=== PATIENT | male | born 1945 | race Caucasian/White ===

== ENCOUNTER 2018-01-24 19:07 | Inpatient (IN) | payer OTHER ==
[~2018-01-24] VITALS: Ht 195.6 cm; Wt 86.1 kg
--- NOTE | ~2018-01-24 | H ---
[facility] [place] [address] HISTORY AND PHYSICAL Name: SVETLANA PEPE Room #: 505-P ADM IN M.R.#: [id number] Admission: 02/17/18 Attend Phys: Jacob Coon MD Discharge: Date of : 49 Report #: [id number] THIS REPORT FOR: //name// CC: Jacob Coon [facility] physician/PCP DATE OF SERVICE: 02/17/2018 HISTORY AND PHYSICAL AND POST-ADMISSION PHYSICIAN EVALUATION HISTORY OF PRESENT ILLNESS: The patient is a 73-year-old white male, transferred from [facility], who was noted to have mental status changes. Images were obtained and revealed bilateral subdural hematomas. He underwent craniotomy for hematoma evacuations x 2 on both 01/10/2018 and 01/26/2018 and had placement of a drain. 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 He is noted to have severe dysphagia. He is n.p.o. and underwent PEG tube placement. He was noted to have urinary retention and was seen by Urology, Ximena Vargas APRN. He has a prior history of a total prostatectomy. He had not had prior problems with retention. They recommended continuing Flomax, may try voiding trial when the patient is more mobile. Continue Tillman catheter. The patient was gradually stabilized and found to be ready now for transfer for acute in-hospital inpatient rehabilitation. PAST MEDICAL HISTORY: Includes hypertension, diabetes mellitus, and schizophrenia. MEDICATIONS: Please see the full medication listing. These are noted to include vitamins, herbals, and supplements. ALLERGIES: No known drug allergies. SOCIAL HISTORY: He was noted to live with his sister, did not utilize gait aids, one step in, was premorbidly independent with basic ADLs. REVIEW OF SYSTEMS: No specific complaints of chest pain, shortness of breath, or abdominal discomfort. No focal extremity pain complaints. PHYSICAL EXAMINATION: GENERAL: The patient is a 73-year-old white male, lying in bed, no obvious distress. VITAL SIGNS: Temperature is 98.4, pulse is 77, respirations 17, blood pressure is 114/80. HEENT: Scalp incisions appear to be intact. Facies appeared symmetric. He has poor dentition. He has significant dysarthria and it is difficult to understand what he is saying. He appears to be able to follow basic 1 step commands and [facility] [address] [place] [address] HISTORY AND PHYSICAL Name: SVETLANA PEPE Room #: 505-P [facility] IN [facility]#: [id number] Admission: 02/17/18 Attend Phys: Jacob Coon MD Discharge: Date of : 47 Report #: [id number] could answer some simple one word questions. EOMs appeared to be intact. CHEST: Sounded clear to auscultation. CARDIAC: Regular rate and rhythm. ABDOMEN: He has the PEG tube in place. GENITOURINARY AND RECTAL: He has the indwelling Tillman catheter. NEUROLOGIC: He has functional range of motion of the upper extremities. Strength is grade 4-/5. DTRs are trace to 1. Lower extremities functional range of motion. Strength appears to be a grade 3+ to 4-/5. DTRs are trace to 1. There is no clonus. Therapy evaluations are currently underway. ASSESSMENT: The patient is a 73-year-old white male with the following problem list: 1. Subdural hematoma, status post craniotomy for evacuation of hematoma x 2 and drain placement. 2. Dysphagia, currently n.p.o. on PEG tube feedings. Dietary is involved as per consultation. 3. Urinary retention with indwelling Tillman catheter. May consider a voiding trial at a later date depending upon his functional recovery with mobility. 4. Severe dysarthria. 5. History of frequent falls. 6. Hypertension. 7. Diabetes mellitus. 8. Premorbid history of schizophrenia. PLAN: The patient is admitted for acute in-hospital inpatient rehabilitation. From a postadmission physician evaluation perspective, there are no relevant changes since the preadmission screening. Please see the review of the prior and current medical and functional conditions and comorbidities. As far as risk of complications, the patient has the multiple medical comorbidities as noted above. The initial plan of care involves the interdisciplinary acute inpatient rehabilitation program with the goal of maximizing his functional independence, so that he can hopefully return back to his prior living situation. The measurable functional goals would be basic transfers, mobility, ADLs, communication, and swallowing. Prognosis is reasonably good with estimated length of stay probably fairly long as he is quite involved. Would anticipate probably at least 3-4 weeks. Potential barriers would include his multiple medical comorbidities and decreased functional status. The patient meets diagnostic criteria for an acute in-hospital inpatient rehabilitation stay. He meets the medical necessity criteria and we will have Internal Medicine involved regarding medical issues. He does have the [facility] [address] [place] [address] HISTORY AND PHYSICAL Name: SVETLANA PEPE #: 505-P ADM IN M.R.#: [id number] Admission: 02/17/18 Attend Phys: Jacob Coon MD Discharge: Date of : 47 Report #: [id number] tolerance for therapies and has appropriate discharge goals back to the home setting. <ELECTRONICALLY SIGNED> By: Jacob Coon MD 02/27/18 1031 [id number] [id number] Jacob Coon MD /PMT
--- NOTE | ~2018-01-24 | HC ---
[facility] [place] [address] CONSULTATION Name: SVETLANA PEPE Room #: 505-P [facility] IN M.R.#: [id number] Admission: 02/17/18 Attend Phys: Jacob Coon MD Discharge: Date of : 47 Report #: [id number] THIS REPORT FOR: //name// CC: Jacob Coon [facility] physician/PCP DATE OF SERVICE: 02/21/2018 NEUROBEHAVIORAL STATUS EXAMINATION ATTENDING PHYSICIAN: Jacob Coon MD DESIGN EDITOR: Remy Pandya, PhD CLINICAL PRESENTATION: The patient is a 73-year-old male admitted to the rehabilitation unit at [facility] for a comprehensive inpatient rehabilitation program to improve functional mobility, activities of daily living and self-care and mental status secondary to deficits from a subdural hematoma. He is status post craniotomy for evacuation of hematoma x 2 and drain placement. His diagnoses include dysphagia, urinary retention with indwelling Tillman catheter, severe dysarthria, history of frequent falls, hypertension, diabetes mellitus and a premorbid history of schizophrenia. The patient reportedly was visiting [place] with his sister and [id number]-[id number] for for a when he fell and sustained his injuries. His sister had a heart attack and needed to return to their home town in [place]. The patient had been living with his sister and [id number] prior to this most recent medical event. A complete description of his medical condition, history and medications can be found in his medical record. Neuropsychological consultation was requested to provide assistance in the assessment of cognitive and emotional status and to provide recommendations and services. Prior to this most recent admission the patient was living with his sister and [id number] in [place]. He carries a longstanding history of mental illness including a diagnosis of schizophrenia. The patient reports having been with 3 children. However, he is an uncertain historian. He is a high school graduate. Attempts were made to contact his sister; however, unsuccessful with an incomplete phone number in the medical record. TECHNIQUES UTILIZED: Clinical interview, review of medical records, staff consultation and behavioral observation, and mini mental status exam 2 brief version. EXAMINATION FINDINGS: The patient was alert and cooperative with the [facility] [address] [place] [address] CONSULTATION Name: SVETLANA PEPE Room #: 505-P [facility] IN ..#: [id number] Admission: 02/17/18 Attend Phys: Jacob Coon MD Discharge: Date of : 47 Report #: [id number] assessment. He is severely dysarthric, which interferes with expressive speech and comprehension. He mumbles his response and occasionally can articulate a specific statement, but with much effort. He does not appear to have an aphasia. It is difficult to assess for thought disorder. However, he does not indicate auditory hallucinations at this time. Medical notes indicate that he was independent with basic activities of daily living. He does not appear to have been driving or managing finances or medication. The patient reports feeling depressed and anxious. Decreased insight into cognitive deficits is suggested. His performance on the MMSE 2 brief version was extremely low with a raw score of 6/16. He was 3/3 for initial registration, 4/5 for orientation to time, 0/[address], and 0/3 for immediate recall of 3 items after a brief time delay and distraction. The patient has very poor problem solving. He was observed as being unable to turn his television off. Auditory comprehension appeared satisfactory. Deficits in expression are severe which interfere with assessment. However, impairment is noted in orientation to place, memory and executive functioning. DIAGNOSTIC IMPRESSION: Delirium, acute, without agitation or irritability. Neurocognitive disorder -- extent to be determined -- likely moderate to severe. Schizophrenia spectrum disorder. RECOMMENDATIONS: Further clarification from his sister will help establish his pre-morbid level of functioning. At this time, the severe dysarthria interferes with adequate assessment of neurocognitive functioning. He does not appear to be acutely psychotic. Symptoms of thought disorder appear well maintained. Subjective anxiety is probably elevated given the unfamiliarity of his circumstances. The patient appears to be cooperative at this time. His family may need to be present to provide reassurance and support during his rehabilitation. Supervision will be necessary upon his return home to [place]. Continued efforts to improve quality of his expressive speech. Consider the use of a memory and orientation notebook and a communication board to assist verbal expression. [address] [address] CONSULTATION Name: SVETLANA PEPE sIi Room #: 505-P [facility] IN ..#: [id number] Admission: 02/17/18 Attend Phys: Jacob Coon MD Discharge: Date of : 47 Report #: [id number] Thank you very much for allowing me to provide the consultation on this patient. <ELECTRONICALLY SIGNED> By: Remy Pandya, PhD 02/24/18 0627 1428 [id number] Remy Pandya, PhD /nt
--- NOTE | ~2018-01-24 | HC ---
[facility] [place] [address] CONSULTATION Name: SVETLANA PEPE Room #: 513-P [facility] IN ..#: [id number] Admission: 02/17/18 Attend Phys: Jacob Coon MD Discharge: 03/12/18 Date of : 47 Report #: [id number] THIS REPORT FOR: //name// CC: Jacob Coon [facility] physician/PCP DATE OF SERVICE: 02/25/2018 IDENTIFYING INFORMATION: A 73-year-old male. HISTORY OF PRESENT ILLNESS: This gentleman was transferred [facility] where he had changes in mental status. At his baseline, it is my understanding that he was living at home with his sister. He was independent with basic ADLs. The patient has been treated for bilateral subdural hematomas and he has required craniotomy. He is up on the rehab unit now, but he has been confused, forgetful, and at times very impulsive. He has difficulty interacting with me. He is unable to give much history. PAST PSYCHIATRIC HISTORY: There is underlying history of paranoid schizophrenia. PAST MEDICAL HISTORY: Craniotomy, dysphagia, urinary retention, dysarthria, hypertension, and diabetes. ALLERGIES: No known medication allergies. CURRENT MEDICATIONS: Include Zyprexa 10 mg daily, Flomax 0.4 daily, Keflex 500 every 6 hours, Prevalite 4 grams twice daily, melatonin 10 mg at bedtime, simethicone 80 mg before meals and at bedtime, not given in over a week, famotidine 20 twice daily, Zoloft 25 daily, gabapentin 300 mg three times daily. COGNITIVE EXAMINATION: He is alert and oriented to his own person only. MENTAL STATUS EXAMINATION: male, casually dressed, restricted affect, dysarthric speech, disorganized thought process, fairly simple. No suicidal ideation, no homicidal ideation, no hallucinations, no delusions. Insight and judgment impaired. DIAGNOSIS: Chronic paranoid schizophrenia, delirium. RECOMMENDATIONS: He may be a candidate for Depakote because of his impulsivity. [facility] [address] [place] [address] CONSULTATION Name: SVETLANA PEPE Room #: 513-P [facility]..#: [id number] Admission: 02/17/18 Attend Phys: Jacob Coon MD Discharge: 03/12/18 Date of : 47 Report #: [id number] The olanzapine on its own does not seem to be effective. Collateral from his family will be very useful. <ELECTRONICALLY SIGNED> By: Catherine Calero MD 03/15/18 1102 1608 0026 Swapnil Ron MD /nt
--- NOTE | ~2018-01-24 | PLAN ---
[facility] [place] [address] REHAB UNIT PLAN OF CARE Name: SVETLANA PEPE Room #: 505-P ADM IN M.R.#: [id number] Admission: 02/17/18 Attend Phys: Jacob Coon MD Discharge: Date of : 47 Report #: [id number] THIS REPORT FOR: //name// CC: Jacob Coon [facility] physician/PCP DATE OF SERVICE: 02/20/2018 The patient was seen back today in followup. He was in no distress. Last recorded temperature 97.6, pulse 70, respirations 16, blood pressure 110/75. Transfers are mod assist, gait max assist, 100 feet front-wheeled walker. Upper body dressing is dependent, lower body dressing is dependent. He has moderate comprehensive deficits with severe expressive deficits and he is n.p.o. We will be utilizing vital stimulation. ASSESSMENT: 1. Subdural hematoma, status post craniotomy for evacuation of hematoma x 2. 2. Dysphagia continuing and PEG tube feedings. We will be starting vital stimulation as discussed with speech therapy. 3. Urinary retention with indwelling Tillman catheter. 4. Severe dysarthria. 5. History of frequent falls. 6. Hypertension. 7. Diabetes mellitus. 8. Premorbid history of schizophrenia. PLAN: The overall plan of care is based on the preadmission screen, post-admission physician evaluation and information garnered from therapy assessments. 1. Estimated length of stay is probably at least 3 weeks, possibly 4 weeks, pending progress. 2. Medical prognosis is reasonably good. 3. Anticipated interventions includes the interdisciplinary acute inpatient rehabilitation program. PT, OT, speech rehab nursing assisting regarding medication management, skin care prophylaxis, bowel and bladder issues and nursing education. Case management is involved as well as the interdisciplinary acute inpatient rehabilitation team. The [facility] consultant physicians are involved as well. 4. Anticipated functional outcomes would be for the patient to become modified independent with transfers, mobility, ADLs, cognition, communication, swallowing, so that he can hopefully return back to the home setting. Ideally, he will be modified independent with basic gait with the walker. 5. Discharge destination would be to live with his sister. 6. Expected therapy by discipline includes PT, OT and speech 1 [place] [address] REHAB UNIT PLAN OF CARE Name: SVETLANA PEPE Room #: 505-P [facility] IN [facility].#: [id number] Admission: 02/17/18 Attend Phys: Jacob Coon MD Discharge: Date of : 47 Report #: [id number] each five days a week throughout the duration. The duration of the acute inpatient rehabilitation stay. <ELECTRONICALLY SIGNED> By: Jacob Coon MD 02/27/18 1031 1241 [id number] Jacob Coon MD /PMT
--- NOTE | ~2018-01-24 | HC ---
[facility] [place] [address] CONSULTATION Name: SVETLANA PEPE Room #: 505-P ADM IN M.R.#: [id number] Admission: 02/17/18 Attend Phys: Jacob Coon MD Discharge: Date of : 47 Report #: [id number] THIS REPORT FOR: //name// CC: Jacob Coon [facility] physician/PCP DATE OF SERVICE: 02/18/2018 HISTORY OF PRESENT ILLNESS: This 73-year-old male patient was seen by me yesterday. I talked to Radha Gandara, registered nurse practitioner, who is following this patient for medical purposes at [facility] and from whom the consult was received. There is a large number of records from [place]. I reviewed part of it, which is available. I cannot find an MRI report there. This patient was originally seen by neurosurgeon there. This is because a subdural hematoma was diagnosed. He underwent 2 surgeries, but from all indication it looks like residual hematoma was still there. That is being managed by Dr. Llanes, a neurosurgeon in [place]. Some time along the line a consultation for Neurology was requested because it was thought on the imaging study that he may have had a frontal lobe stroke. I reviewed that consult. It looks like they were going to do an MRI of the brain if there was no contraindication. It does not look like MRI was done, but I am not certain. I do not see any report there. I have asked the nurses to look for the report and see if the MRI was done. It may have been because it got displaced here or it may have been because there was some contraindication. He is pretty sick here. He opens his eyes, but he has to have a tube for the feeding. He is here for the rehabilitation. REVIEW OF SYSTEMS: A 14-point review of system was carried out and looks like this patient has a history of diabetes, hypertension, frequent falls, urinary retention, subdural hematoma post craniotomy, PEG tube placement. PAST MEDICAL HISTORY: Positive for hematoma. FAMILY HISTORY: Negative for any early age stroke. SOCIAL HISTORY: Unavailable. PHYSICAL EXAMINATION: Pretty limited. He was alert and responsive. He was able to follow simple commands. He does appear to be dysarthric. I think he can move all 4 extremities. I could not examine any further, like position sense because he is not able to cooperate. He is a well-developed individual who does not have any dysmorphic features of eyes, ears and face. His vision [facility] [address] [place] [address] CONSULTATION Name: SVETLANA PEPE Room #: 505-P [facility] IN [facility].#: [id number] Admission: 02/17/18 Attend Phys: Jacob Coon MD Discharge: Date of : 47 Report #: [id number] and hearing looks adequate. Cardiac examination is unremarkable. No respiratory difficulty or rhonchi. Blood pressure is 102/68, respiration is 17, pulse is 76, temperature is 97.6. IMPRESSION: 1. Subdural hematoma. He has residual subdural hematoma. I do not know whether it is different or not. That needs to be addressed by his neurosurgeon. I asked the hospitalist to coordinate that care with the neurosurgeon and see if anything else needs to be done in that regard and they should review his films somehow and compare with the last one. 2. Neurology was involved for the stroke in this patient. I am trying to see if MRI was done. If was not done, then MRI should be done and that will help us prognosticate the patient and initiate secondary prophylaxis, though it is going to be difficult with hematoma. All of it was discussed with the patient. I do not know how much the patient understands. There was no family member there. I did discuss with the hospitalist. I will check in a few days to see if this patient has any MRI done at [facility], but otherwise it probably needs to be done some time. <ELECTRONICALLY SIGNED> By: Porfirio Antunez MD 02/27/18 1053 1459 [id number] Porfirio Antunez MD /nt
[2018-02-17] MEDS ORDERED: LISINOPRIL2.5 MG PO (11:32)
[2018-02-17] MEDS ORDERED: LISINOPRIL2.5 M1 PO (11:34)
[2018-02-17] MEDS ORDERED: NAPROXEN375 M1 PO (11:36)
[2018-02-17] MEDS ORDERED: NEURONTIN 300300 M1 PO (11:40)
[2018-02-17] MEDS ORDERED: ZOLOFT25 MG PO (11:41)
[2018-02-17] MEDS ORDERED: LIPITOR 20 MG T20 M1 PO (11:41)
[2018-02-17] MEDS ORDERED: METFORMIN HCL500 MG PO (11:43)
[2018-02-17] MEDS ORDERED: ZYPREXA 10 MG T10 MG PO (11:45)
[2018-02-17] MEDS ORDERED: ZYPREXA 5 MG TAB5 M1 PO (11:47)
[2018-02-17] MEDS ORDERED: OMEPRAZOLE 20 M20 M1 PO (11:50)
[2018-02-17 17:11] VITALS: BP 107/77
[2018-02-17 19:01] LABS: TSH 1.306 uIU/mL (0.358-3.740)
[2018-02-17 20:46] VITALS: BP 114/80
[2018-02-18 03:10] LABS: HEMATOCRIT 41.9 % (42.0-52.0); HEMOGLOBIN 14.1 gm/dL (14.0-18.0); MCH 30.4 pg (26.0-34.0); MCHC 33.6 g/dL (28.0-37.0); MCV 90.4 fL (80.0-100.0); RBC 4.63 mil/uL (4.50-6.00); RDW 14.2 % (10.5-14.5); WBC 3.7 thou/uL (4.0-11.0)
[2018-02-18 03:41] LABS: CALCIUM 8.7 mg/dL (8.5-10.1); CREATININE 0.7 mg/dL (0.7-1.3); POTASSIUM 3.7 mmol/L (3.5-5.1)
[2018-02-18 08:30] VITALS: BP 96/65
[2018-02-18 11:21] LABS: CHOLESTEROL 145 mg/dL (<200); HDL CHOLESTEROL 29 mg/dL (>40); LDL CHOLESTEROL 101 mg/dL (<100); TRIGLYCERIDE 78 mg/dL (<150); VLDL 16 mg/dL (<40)
[2018-02-18 19:38] VITALS: BP 110/73
[2018-02-18 20:08] LABS: GLYCOHEMOGLOBIN (HGB A1C) 5.8 % (4.8-5.6)
[2018-02-19 08:36] VITALS: BP 102/68
[2018-02-19 20:45] VITALS: BP 103/72
[2018-02-20 07:05] VITALS: BP 110/75
[2018-02-20 19:23] VITALS: BP 98/64
[2018-02-21 07:00] VITALS: BP 93/60
[2018-02-21 19:21] VITALS: BP 100/60
[2018-02-22 07:35] VITALS: BP 105/67
[2018-02-22 15:15] VITALS: BP 101/60
[2018-02-22 19:10] VITALS: BP 105/62
[2018-02-23 07:38] VITALS: BP 105/70
[2018-02-23 20:51] VITALS: BP 113/70
[2018-02-24 09:00] VITALS: BP 106/74
[2018-02-24 11:55] LABS: ABSOLUTE NEUTROPHILS 3.7 thou/uL (1.4-8.2); BASOPHILS 0.6 % (0.0-2.0); EOSINOPHILS 1.3 % (0.0-3.0); HEMATOCRIT 41.8 % (42.0-52.0); HEMOGLOBIN 14.5 gm/dL (14.0-18.0); LYMPHOCYTES 16.8 % (24.0-44.0); MCH 31.3 pg (26.0-34.0); MCHC 34.7 g/dL (28.0-37.0); MONOCYTES 5.4 % (1.0-8.0); PLATELET COUNT 208 thou/uL (150-400); POLYS 75.9 % (36.0-66.0); RBC 4.65 mil/uL (4.50-6.00); RDW 14.5 % (10.5-14.5); WBC 4.9 thou/uL (4.0-11.0)
[2018-02-24 12:00] LABS: CALCIUM 9.3 mg/dL (8.5-10.1); CREATININE 0.8 mg/dL (0.7-1.3); MAGNESIUM 1.9 mg/dL (1.8-2.4); POTASSIUM 4.2 mmol/L (3.5-5.1)
[2018-02-24 12:22] LABS: URINE BLOOD 3+ (Negative); URINE CLARITY CLOUDY; URINE COLOR RED; URINE GLUCOSE-RANDOM* NEGATIVE (Negative); URINE KETONES NEGATIVE (Negative); URINE NITRITE-REFLEX NEGATIVE (Negative); URINE PROTEIN (DIPSTICK) 2+ (Negative); URINE SPECIFIC GRAVITY <= 1.005 (1.005-1.035); URINE UROBILINOGEN 0.2 E.U./dl (0.2-1.0)
[2018-02-24 12:23] LABS: ICTOTEST (BILI CONFIRMATORY) Negative (Negative); URINE BILIRUBIN NEGATIVE (Negative); URINE LEUKOCYTES-REFLEX 2+ (Negative)
[2018-02-24 12:33] LABS: CASTS None Seen /LPF (None Seen); SQUAMOUS 4-10 Moderate /LPF (0-3)
[2018-02-24 12:34] LABS: BACTERIA-REFLEX 1-9 Few /HPF (None Seen); CRYSTALS None Seen /LPF (None Seen); MUCUS 0-3 Light strn/LPF (None Seen); URINE RBC >20 Many /HPF (0-2); URINE WBC-REFLEX 0-5 Rare /HPF (0-5)
[2018-02-24 19:45] VITALS: BP 106/63
[2018-02-25 08:26] VITALS: BP 91/64
[2018-02-25 19:37] VITALS: BP 116/57
[2018-02-26 08:25] VITALS: BP 117/74
[2018-02-26 19:49] VITALS: BP 118/79
[2018-02-27 07:14] VITALS: BP 95/49
[2018-02-27 21:14] VITALS: BP 103/63
[2018-02-28 07:15] VITALS: BP 120/70
[2018-02-28 09:40] VITALS: BP 95/55
[2018-02-28 09:50] VITALS: BP 88/58
[2018-02-28 12:50] VITALS: BP 88/60
[2018-02-28 14:00] VITALS: BP 113/61
[2018-02-28 19:25] VITALS: BP 118/76
[2018-03-01 07:30] VITALS: BP 102/71
[2018-03-01 21:38] VITALS: BP 126/79
[2018-03-02 07:52] VITALS: BP 101/66
[2018-03-02 19:55] VITALS: BP 105/71
[2018-03-03 06:45] LABS: HEMOGLOBIN 13.5 gm/dL (14.0-18.0)
[2018-03-03 06:47] LABS: ABSOLUTE NEUTROPHILS 2.5 thou/uL (1.4-8.2); BASOPHILS 0.5 % (0.0-2.0); EOSINOPHILS 1.6 % (0.0-3.0); HEMATOCRIT 40.1 % (42.0-52.0); LYMPHOCYTES 28.2 % (24.0-44.0); MCH 30.6 pg (26.0-34.0); MCHC 33.5 g/dL (28.0-37.0); MCV 91.3 fL (80.0-100.0); MONOCYTES 4.5 % (1.0-8.0); PLATELET COUNT 202 thou/uL (150-400); POLYS 65.2 % (36.0-66.0); RDW 14.5 % (10.5-14.5); WBC 3.9 thou/uL (4.0-11.0)
[2018-03-03 06:54] LABS: CREATININE 0.8 mg/dL (0.7-1.3); MAGNESIUM 2.1 mg/dL (1.8-2.4); POTASSIUM 3.7 mmol/L (3.5-5.1)
[2018-03-03 07:30] VITALS: BP 82/55
[2018-03-03 08:35] VITALS: BP 97/64
[2018-03-03 19:12] VITALS: BP 111/76
[2018-03-04 07:15] VITALS: BP 112/74
[2018-03-04 19:52] VITALS: BP 114/74
[2018-03-05 07:25] VITALS: BP 96/64
[2018-03-05 11:29] LABS: HEMATOCRIT 39.1 % (42.0-52.0); HEMOGLOBIN 13.3 gm/dL (14.0-18.0); MCH 30.7 pg (26.0-34.0); MCHC 33.9 g/dL (28.0-37.0); MCV 90.6 fL (80.0-100.0); RBC 4.32 mil/uL (4.50-6.00); RDW 14.9 % (10.5-14.5); WBC 5.8 thou/uL (4.0-11.0)
[2018-03-05 11:35] LABS: CALCIUM 9.1 mg/dL (8.5-10.1); CREATININE 0.8 mg/dL (0.7-1.3); POTASSIUM 4.5 mmol/L (3.5-5.1)
[2018-03-05 20:26] VITALS: BP 101/85
[2018-03-06 07:25] VITALS: BP 101/65
[2018-03-06 20:02] VITALS: BP 93/57
[2018-03-07 08:00] VITALS: BP 99/62
[2018-03-07 14:00] VITALS: BP 138/87
[2018-03-07 15:56] VITALS: BP 120/64
[2018-03-07 19:53] VITALS: BP 107/75
[2018-03-08 07:30] VITALS: BP 114/77
[2018-03-08 20:20] VITALS: BP 118/78
[2018-03-09 06:50] VITALS: BP 95/65
[2018-03-09 19:58] VITALS: BP 163/71
[2018-03-10 08:59] VITALS: BP 104/69
[2018-03-10 20:20] VITALS: BP 116/75
[2018-03-11 06:00] LABS: ABSOLUTE NEUTROPHILS 8.5 thou/uL (1.4-8.2); BASOPHILS 0.3 % (0.0-2.0); EOSINOPHILS 0.5 % (0.0-3.0); HEMATOCRIT 39.7 % (42.0-52.0); HEMOGLOBIN 13.2 gm/dL (14.0-18.0); LYMPHOCYTES 10.8 % (24.0-44.0); MCH 30.5 pg (26.0-34.0); MCHC 33.3 g/dL (28.0-37.0); MCV 91.6 fL (80.0-100.0); MONOCYTES 7.4 % (1.0-8.0); PLATELET COUNT 176 thou/uL (150-400); RBC 4.33 mil/uL (4.50-6.00); RDW 14.9 % (10.5-14.5); WBC 10.5 thou/uL (4.0-11.0)
[2018-03-11 06:16] LABS: CALCIUM 8.6 mg/dL (8.5-10.1); CREATININE 0.6 mg/dL (0.7-1.3); MAGNESIUM 1.9 mg/dL (1.8-2.4); POTASSIUM 4.3 mmol/L (3.5-5.1)
[2018-03-11 09:15] VITALS: BP 97/76
[2018-03-11 19:56] VITALS: BP 101/67
[2018-03-12] MEDS ORDERED: FLOMAX0.4 MG PO (09:22)
[2018-03-12] MEDS ORDERED: DIVALPROEX SOD125 MG PO (09:22)
[2018-03-12] MEDS ORDERED: COLACE100 MG PO (09:22)
[2018-03-12] MEDS ORDERED: PROBIOTIC1 EAC1 PO (09:22)
[2018-03-12] MEDS ORDERED: PREVALITE PACKET4 GM PO (09:22)
[2018-03-12] MEDS ORDERED: MELATONIN5 M1 PO (09:22)
== END 2018-03-12 14:30 | DRG 64 ==
PROVIDERS: Hospitalist; Nurse Practitioner; Nurse Practitioner Family; Physical Medicine & Rehabilitation
DX: I62.00 Nontraumatic subdural hemorrhage, unspecified (principal); E43 Unspecified severe protein-calorie malnutrition; N39.0 Urinary tract infection, site not specified; G93.40 Encephalopathy, unspecified; F20.0 Paranoid schizophrenia; E11.9 Type 2 diabetes mellitus without complications; I10 Essential (primary) hypertension; R13.10 Dysphagia, unspecified; R33.9 Retention of urine, unspecified; R47.1 Dysarthria and anarthria; E78.5 Hyperlipidemia, unspecified; R07.89 Other chest pain; R31.9 Hematuria, unspecified; Z53.29 Procedure and treatment not carried out because of patient's decision for other reasons; R29.6 Repeated falls; I95.9 Hypotension, unspecified; Z93.1 Gastrostomy status; Z90.79 Acquired absence of other genital organ(s); Z85.46 Personal history of malignant neoplasm of prostate; Z68.22 Body mass index [BMI] 22.0-22.9, adult
CPT/HCPCS: 10112